=== PATIENT | female | born 1955 | race Caucasian/White ===

== ENCOUNTER 2019-01-21 14:53 | Emergency (ER) | payer OTHER, SELFPAY ==
[2019-01-21 14:57] VITALS: BP 131/71; PULSE 73; RESP 16; TEMP 36.6; O2SAT 95
--- NOTE | 2019-01-21 15:09 | ED.GENADUL_ITS ---
Discharge Plan Disposition Patient Disposition: HOME Condition: Improving Discharge Details Chief Complaint: AnimalBite Clinical Impression: Cat bite of forearm Primary Care Provider: Akin Blue ED Provider: Chele Clancy Home Meds and New Rx's Prescriptions: New amoxicillin-pot clavulanate 875-125 mg tablet 1 tab PO BID 10 Days Qty: 20 RF: 0 Continued venlafaxine 75 mg Tablet 150 mg DAILY RF: 0 calcium carbonate [Calcium 600] 600 mg calcium (1,500 mg) Tablet 600 mg BID RF: 0 buspirone 7.5 mg Tablet 7.5 mg TID RF: 0 aspirin 81 mg Tablet,Chewable 81 mg PO DAILY RF: 0 trazodone 50 mg Tablet 50 mg PRNRF: 0 carvedilol 3.125 mg Tablet 3.125 mg BID RF: 0 rosuvastatin 40 mg Tablet 40 mg DAILY RF: 0 Atripla 600-200-300 mg Tablet 1 tab DAILY RF: 0 Brilinta 90 mg Tablet 90 mg BID RF: 0 Discharge Instructions Instructions: Animal Bite (ED) Additional Instructions: Please take Augmentin as prescribed. Follow-up with Dr. Blue in clinic as planned. Elevate the arm to reduce pain and swelling. May use Tylenol if needed for discomfort. As we discussed, I recommend a probiotic once daily while on the antibiotics. Return for increased redness, swelling, pain or any other acute concern Medical Decision Making 63-year-old female recently moved to this area from [facility]. She was bitten in the right forearm by a domesticated, immunized cat yesterday, awoke with right arm erythema and warmth this morning. She has a history of HIV, no change to medications which she takes routinely. She has scheduled a appointment to establish care locally with Dr Blue. She does have a developing cellulitis secondary to cat bite. I will treat with Augmentin. She understands homecare as well as return precautions. She is stable for discharge at this time. HPI General Mode of arrival: ambulatory . Date/Time Provider Initiated Documentation: 01/21/19 14:56 . Limitations to Documentation: no limitations . Information obtained by: patient . History of Present Illness 63 year old F presents to the emergency department with the chief complaint of Right arm cat bite, described as moderate, Quality is described as constant, and is localized to the right and upper extremity. Patient reports no radiation. Patient started experiencing this hour(s) and it has been constant. No relieving factors improve symptom(s), No exacerbating factors reported . Patient notes no other symptoms.. Patient did receive the following treatments prior to arrival, none Related Data Home Medications Medication Instructions Recorded Confirmed Atripla 1 tab DAILY 01/21/19 01/21/19 Brilinta 90 mg BID 01/21/19 01/21/19 amoxicillin-pot clavulanate 1 tab PO BID 10 Days #20 tab 01/21/19 aspirin 81 mg PO DAILY 01/21/19 01/21/19 buspirone 7.5 mg TID 01/21/19 01/21/19 calcium carbonate [Calcium 600] 600 mg BID 01/21/19 01/21/19 carvedilol 3.125 mg BID 01/21/19 01/21/19 rosuvastatin 40 mg DAILY 01/21/19 01/21/19 trazodone 50 mg PRN 01/21/19 venlafaxine 150 mg DAILY 01/21/19 01/21/19 Previous Rx's Medication Instructions Recorded amoxicillin-pot clavulanate 1 tab PO BID 10 Days #20 tab 01/21/19 Allergies Allergy/AdvReac Type Severity Reaction Status Date / Time No Known Allergies Allergy Unverified 01/21/19 15:16 General Stated Complaint: AnimalBite DOMINGO: 3 Review of Systems Review of Systems 6 systems reviewed and otherwise neg [facility] Social History Smoking/Tobacco Use Status: Current every day Tobacco Type: cigarettes Alcohol Intake: never Substance use type: does not use Do you feel safe at home: Yes Exam Narrative Exam Narrative: GEN: awake, alert, oriented 3. Pleasant, well groomed, interactive. HEAD: Normocephalic, atraumatic ENT: Mucous membranes moist, oropharynx unremarkable, External ear exam unremarkable EYES: PERRL, EOMI NECK: Full ROM, no CEM, no menigismus CHEST/RESP: Nontender, clear to auscultation bilateral, no wheeze/rhonchi/rales CARDIOVASCULAR: RRR, no murmur, rub jaleel. 2+ Rad pulse bilateral EXT: Full ROM, the right distal forearm has 3 areas of discrete puncture bite wounds with surrounding erythema that is warm to the touch and blanches. No axillary lymphadenopathy Neuro: Grossly normal neurologic exam, conversant, interactive. Psych: Speech fluent, thoughts congruent, affect normal Course Vital Signs Temperature 36.6 C 01/21/19 14:57 Pulse 73 01/21/19 14:57 Respiratory Rate 16 01/21/19 14:57 Blood Pressure 131/71 01/21/19 14:57 Pulse Oximetry 95 01/21/19 14:57 Temperature 36.6 C 01/21/19 14:57 Temperature Source Skin 01/21/19 14:57 Pulse 73 01/21/19 14:57 Respiratory Rate 16 01/21/19 14:57 Respiratory Effort Non-Labored 01/21/19 15:00 Blood Pressure 131/71 01/21/19 14:57 Blood Pressure Position Sitting 01/21/19 14:57 Pulse Oximetry 95 01/21/19 14:57 Oxygen Delivery Method Room Air 01/21/19 14:57 Oxygen Flow Rate 0 01/21/19 14:57
[2019-01-21] MEDS: Amoxicillin 875/Clav. 125 TAB PO (15:28)
== END 2019-01-21 15:35 | disposition home or self-care (01) ==
PROVIDERS: Emergency Provider Emergency Medicine; PCP Family Medicine
DX: S51.831A Puncture wound without foreign body of right forearm, initial encounter (principal); L03.113 Cellulitis of right upper limb; W55.01XA Bitten by cat, initial encounter; Z21 Asymptomatic human immunodeficiency virus [HIV] infection status
CPT/HCPCS: 99283

== ENCOUNTER 2019-02-03 08:24 | Emergency (ER) | payer OTHER, SELFPAY ==
--- NOTE | 2019-02-03 08:30 | DI.RAD_ITS ---
SYMPTOM/DIAGNOSIS: COUGH, HIV PA AND LATERAL CHEST: The lungs are mildly hyperinflated and there is prominence of pulmonary interstitial markings raising the possibility of fibrosis. No focal consolidation. No pleural effusion. Cardiac size is within normal limits. CONCLUSION: Findings raising the possibility of pulmonary fibrosis. No focal abnormality is seen.
[2019-02-03 08:33] VITALS: BP 121/71; PULSE 73; RESP 16; TEMP 36.7; O2SAT 98
--- NOTE | 2019-02-03 08:38 | W.ED.GENAD ---
Discharge Plan Disposition Patient Disposition: HOME Condition: Stable Discharge Details Chief Complaint: RespSymp Clinical Impression: Infection, respiratory tract Primary Care Provider: Akin Blue ED Provider: Tj Person Home Meds and New Rx's Prescriptions: New benzonatate 200 mg capsule 200 mg PO TID PRN (Reason: cough) Qty: 30 RF: 0 doxycycline hyclate 100 mg capsule 100 mg PO BID Qty: 14 RF: 0 Continued venlafaxine 75 mg Tablet 150 mg DAILY RF: 0 calcium carbonate [Calcium 600] 600 mg calcium (1,500 mg) Tablet 600 mg BID RF: 0 buspirone 7.5 mg Tablet 7.5 mg TID RF: 0 aspirin 81 mg Tablet,Chewable 81 mg PO DAILY RF: 0 trazodone 50 mg Tablet 50 mg PRNRF: 0 carvedilol 3.125 mg Tablet 3.125 mg BID RF: 0 rosuvastatin 40 mg Tablet 40 mg DAILY RF: 0 Atripla 600-200-300 mg Tablet 1 tab DAILY RF: 0 Brilinta 90 mg Tablet 90 mg BID RF: 0 Discharge Instructions Instructions: Upper Respiratory Infection (ED) Additional Instructions: Please take your medication as prescribed and stay well-hydrated. Return to emergency department for any new or significant worsening of symptoms otherwise follow-up with your primary care provider for reassessment. Referrals: Akin Blue [Primary Care Provider] - (Keep your appointment as scheduled. ) Medical Decision Making Patient presenting the emergency department for chief complaint of cough. Patient is a HIV patient that just recently moved to the area. She states yesterday she started noticing a cough that became harsh throughout the course the day. Last night she does state some fever and chills. Patient does state history of COPD emphysema due to smoking which she has been trying to quit but has been smoking more over the past couple weeks due to life stressors. Physical exam shows an afebrile patient with normal vital signs, no respiratory distress, normal cardiac exam without tachycardia, clear lung sounds, normal HEENT exam. While exam is very reassuring given that patient is HIV positive with history of fever and chills and cough I do feel that work-up is required. Pending results patient given IV fluids. Review of labs shows slightly increased hemoglobin, no leukocytosis and specifically absolute lymphocyte within normal range. CMP is nondiagnostic and unremarkable UA. Chest x-ray reviewed along with radiologist interpretation shows no acute findings. While I feel labs and x-rays reassuring given that patient is reporting night sweats, fever, and worsening cough in her rapid. I still do feel that given patient's HIV and COPD emphysema the patient requires antibiotic coverage. Patient placed on doxycycline and given Tessalon Perles for cough suppressant. Patient reports that she already has a primary care visit follow-up scheduled for next week which if patient is not worsening I feel this is appropriate. Return precautions were discussed. After discussion of diagnosis and plan of care patient has no further needs, questions, or concerns and states clear understanding to return to the emergency department for any worsening symptoms. HPI General Mode of arrival: ambulatory. Date/Time Provider Initiated Documentation: 02/03/19 08:25. Limitations to Documentation: no limitations. Information obtained by: patient, RN notes reviewed and old records reviewed. History of Present Illness 63 year old F presents to the emergency department with the chief complaint of Cough, described as moderate and similar to prior episodes, Quality is described as other (Denies pain or discomfort), Patient started experiencing this day(s) (1) and it has been constant. No relieving factors improve symptom(s), No exacerbating factors reported . Patient did receive the following treatments prior to arrival, none Related Data Home Medications Medication Instructions Recorded Confirmed Atripla 1 tab DAILY 01/21/19 01/21/19 Brilinta 90 mg BID 01/21/19 01/21/19 aspirin 81 mg PO DAILY 01/21/19 01/21/19 buspirone 7.5 mg TID 01/21/19 01/21/19 calcium carbonate [Calcium 600] 600 mg BID 01/21/19 01/21/19 carvedilol 3.125 mg BID 01/21/19 01/21/19 rosuvastatin 40 mg DAILY 01/21/19 01/21/19 trazodone 50 mg PRN 01/21/19 venlafaxine 150 mg DAILY 01/21/19 01/21/19 benzonatate 200 mg PO TID PRN #30 cap 02/03/19 doxycycline hyclate 100 mg PO BID #14 cap 02/03/19 Previous Rx's Medication Instructions Recorded benzonatate 200 mg PO TID PRN #30 cap 02/03/19 doxycycline hyclate 100 mg PO BID #14 cap 02/03/19 Allergies Allergy/AdvReac Type Severity Reaction Status Date / Time No Known Allergies Allergy Unverified 01/21/19 15:16 General Stated Complaint: RespSymp DOMINGO: 3 Review of Systems Constitutional Reports chills, Reports fever(s) and Denies headache(s) ENT Reports as per HPI, Denies ear discharge, Denies otalgia, Denies headache(s), Reports nasal congestion, Denies neck pain, Denies sore throat and Denies throat swelling Cardiovascular Denies chest pain and Denies dyspnea Respiratory Reports cough and Denies dyspnea Musculoskeletal Denies joint swelling and Denies neck pain Integumentary/Breasts Denies rash Neurologic Denies headache(s) Allergic/Immunologic Denies throat swelling PFSH Social History Smoking/Tobacco Use Status: Current every day Tobacco Type: cigarettes Alcohol Intake: never Substance use type: does not use Do you feel safe at home: Yes Exam Const General: cooperative, comfortable and no acute distress Orientation: alert and awake [facility] Head: normal to inspection, normocephalic and atraumatic Ears: hearing grossly normal bilaterally, external ears normal and TM's normal bilaterally General nose exam: external nose normal and nares normal Mouth: oral mucosae normal, lip normal, tongue normal, no drooling, no muffled voice and no trismus Throat: posterior oropharynx normal, tonsils normal and uvula midline Neck Neck: normal visual inspection, full ROM, no lymphadenopathy, no meningeal signs, trachea midline and supple Resp Effort & Inspection: normal respiratory effort, able to speak in complete sentences and cough Quality of cough: dry Auscultation: clear to auscultation bilaterally Cardio Rate: regular rate Rhythm: regular rhythm Heart Sounds: S1 normal, S2 normal, normal S1 and S2, no click, no gallops, no murmurs and no rubs Skin General skin exam: no rashes or lesions noted and dry skin (warm) Neuro General: alert, awake, gait normal and moves all extremities Course Vital Signs Temperature 36.7 C 02/03/19 08:33 Pulse 73 02/03/19 08:33 Respiratory Rate 16 02/03/19 08:33 Blood Pressure 121/71 02/03/19 08:33 Pulse Oximetry 98 02/03/19 08:33 Temperature 36.7 C 02/03/19 08:33 Temperature Source Skin 02/03/19 08:33 Pulse 73 02/03/19 08:33 Respiratory Rate 16 02/03/19 08:33 Respiratory Effort Non-Labored 02/03/19 08:36 Respiratory Depth Normal 02/03/19 08:36 Blood Pressure 121/71 02/03/19 08:33 Blood Pressure Position Supine 02/03/19 08:33 Pulse Oximetry 98 02/03/19 08:33 Lab/Test Results Lab/Test Results: 02/03/19 08:32 Blood Blood Culture - Pending 02/03/19 08:32 Blood Blood Culture - Pending
[2019-02-03] MEDS: Normal Saline 1,000 ML 1000 ML IV (08:57)
[2019-02-03 09:05] LABS: Lactate 1.2 mmol/L (0.6-1.4)
[2019-02-03 09:07] LABS: Abs Immature Grans 0.03 k/cumm (0.0-0.09); Absolute Basophil Count 0.06 k/cumm (0.0-0.2); Absolute Eosinophil Count 0.19 k/cumm (0.0-0.7); Absolute Lymphocyte Count 1.95 k/cumm (1.2-3.4); Absolute Monocyte Count 0.48 k/cumm (0.11-0.7); Absolute Neutrophil Count 4.46 k/cumm (1.2-6.7); Basophils % 0.8; Eosinophils % 2.6; HCT 45.6 % (36.0-46.0); HGB 15.7 g/dL (12.0-15.5); Immature Grans % 0.4; Lymphocytes % 27.2; Mean Corp. HGB Concentration 34.4 g/dL (32.0-36.0); Mean Corpuscular Hemoglobin 33.5 pg (27.0-33.0); Mean Corpuscular Volume 97.2 fL (80-95); Mean Platelet Volume 10.3 fL (8.0-11.0); Monocytes % 6.7; Neutrophils % 62.3; Platelet Count 330 x1000/uL (130-400); RBC 4.69 m/cumm (4.00-5.20); RBC Distribution Width 13.1 % (11.7-14.6); White Blood Cell Count 7.17 k/cumm (4.4-10.8)
[2019-02-03 09:09] LABS: Bilirubin Negative (Negative); Blood Negative (Negative); Clarity Clear (Clear); Glucose Negative (Negative); Ketones Negative (Negative); Leukocyte Esterase Negative (Negative); Nitrite Negative (Negative); Specific Gravity 1.015 (1.005-1.025); Urobilinogen 0.2 EU/dL (Up TO 0.2); pH 6.5 (5-8)
[2019-02-03 09:24] LABS: ALT 30 U/L (12-78); AST 20 U/L (15-37); Albumin 3.6 g/dL (3.4-5.0); Alkaline Phosphatase 85 U/L (46-116); Anion Gap 11.1 mmol/L (3-11); BUN 16 mg/dL (7-18); Bilirubin, Total 0.1 mg/dL (0.2-1.0); CO2 25.9 mmol/L (21.0-32.0); CREATININE 0.66 mg/dL (0.55-1.02); Calcium 9.4 mg/dL (8.5-10.1); Chloride 104 mmol/L (98-107); Glucose 115 mg/dL (70-100); Sodium 141 mmol/L (136-145); Total Protein 7.6 g/dL (6.4-8.2)
[2019-02-03 10:53] VITALS: BP 121/78; PULSE 74; RESP 20; TEMP 36.6; O2SAT 97
[2019-02-03] MEDS: Doxycycline Hyclate 100 MG CAP PO (10:55)
--- NOTE | 2019-02-03 10:57 | NUR.NOTE ---
Nursing Note: IV Removed, dressing applied.
== END 2019-02-03 11:16 | disposition home or self-care (01) ==
PROVIDERS: Emergency Provider Nurse Practitioner Family; PCP Family Medicine
DX: J22 Unspecified acute lower respiratory infection (principal); J43.9 Emphysema, unspecified; F17.210 Nicotine dependence, cigarettes, uncomplicated; Z21 Asymptomatic human immunodeficiency virus [HIV] infection status
CPT/HCPCS: 36410; 36415; 80053; 87040; 96360; 99284; 71046; 81003; 83605; 85025

== ENCOUNTER 2019-02-08 14:56 | Outpatient (CLI) | payer OTHER, SELFPAY ==
[2019-02-08 15:43] LABS: Abs Immature Grans 0.03 k/cumm (0.0-0.09); Absolute Basophil Count 0.06 k/cumm (0.0-0.2); Absolute Eosinophil Count 0.08 k/cumm (0.0-0.7); Absolute Lymphocyte Count 2.08 k/cumm (1.2-3.4); Absolute Monocyte Count 0.44 k/cumm (0.11-0.7); Absolute Neutrophil Count 4.82 k/cumm (1.2-6.7); Basophils % 0.8; Eosinophils % 1.1; HCT 43.4 % (36.0-46.0); HGB 14.8 g/dL (12.0-15.5); Immature Grans % 0.4; Lymphocytes % 27.7; Mean Corp. HGB Concentration 34.1 g/dL (32.0-36.0); Mean Corpuscular Hemoglobin 33.2 pg (27.0-33.0); Mean Corpuscular Volume 97.3 fL (80-95); Mean Platelet Volume 10.1 fL (8.0-11.0); Monocytes % 5.9; Neutrophils % 64.1; Platelet Count 338 x1000/uL (130-400); RBC 4.46 m/cumm (4.00-5.20); RBC Distribution Width 13.4 % (11.7-14.6); White Blood Cell Count 7.51 k/cumm (4.4-10.8)
[2019-02-08 16:49] LABS: ALT 29 U/L (14-59); AST 18 U/L (15-37); Albumin 3.2 g/dL (3.4-5.0); Alkaline Phosphatase 99 U/L (46-116); Anion Gap 11.1 mmol/L (3-11); BUN 27 mg/dL (7-18); Bilirubin, Total 0.3 mg/dL (0.2-1.0); CO2 24.9 mmol/L (21.0-32.0); CREATININE 0.64 mg/dL (0.55-1.02); Calcium 8.8 mg/dL (8.5-10.1); Calculated LDL 81 mg/dL; Chloride 108 mmol/L (98-107); Cholesterol 175 mg/dL (50-200); Glucose 104 mg/dL (70-100); HDL Cholesterol 62 mg/dL (40-60); Sodium 144 mmol/L (136-145); Total Protein 6.4 g/dL (6.4-8.2); Triglyceride 163 mg/dL (30-150)
[2019-02-08 17:05] LABS: PHOSPHORUS 3.9 mg/dL (2.6-4.7)
[2019-02-09 10:20] LABS: Hepatitis B Surface Ag Negative (NEGAT)
[2019-02-09 11:54] LABS: Syphilis Serology (RPR) Negative (Negative)
[2019-02-09 14:40] LABS: CD3 79 % (62-87); CD4 29 % (35-63); CD8 51 % (10-35)
[2019-02-09 14:57] LABS: HCV RNA Detection Quantitative Undetected IU/mL (UNDECT)
[2019-02-09 15:51] LABS: HIV-1 RNA Quantification Undetected copies/mL (UNDECT)
== END 2019-02-08 15:16 ==
PROVIDERS: PCP Family Medicine; Visit Provider Family Medicine
DX: B20 Human immunodeficiency virus [HIV] disease (principal); R79.89 Other specified abnormal findings of blood chemistry
CPT/HCPCS: 36415; 80053; 80061; 83721; 87340; 87536; 84100; 85025; 86359; 86360; 86592; 87522

== ENCOUNTER 2019-06-24 02:20 | Outpatient (CLI) | payer OTHER, MEDICAID, SELFPAY ==
--- NOTE | 2019-06-24 15:20 | DI.DEXA_ITS ---
EXAM: XR DEXA BONE DENSITY W/WO CECI CLINICAL HISTORY: OSTEOPOROSIS, M81.0 TECHNIQUE: DEXA scan was performed according to the usual protocol. COMPARISON: No exams were available for comparison FINDINGS: Findings for lumbar spine scanning are T-score -0.8. Findings for left hip are T-score -1.8 with left femoral neck T-score -1.1. Findings for left forearm scanning are T-score -1.2. IMPRESSION: Findings consistent with osteopenia according to WHO criteria. Please note that there are multiple v ertebral compression fractures seen on lateral vertebral scanogram.
--- NOTE | 2019-06-24 15:45 | DI.MAMMO_ITS ---
EXAM: MG MAMMO SCREENING CLINICAL HISTORY: SCREENING, Z12.39. TECHNIQUE: Bilateral full field digital CC and MLO mammographic images were obtained with 3D tomosyn thesis and utilizing computer aided detection (CAD). COMPARISON: There were no available exams for comparison. Should they become available an addendum w ill be issued at that time. FINDINGS: Masses/Architectural Distortion: None seen. Microcalcifications: No suspicious pleomorphic-type are seen. Skin Thickening/Nipple Retraction: None. IMPRESSION: 1. No significant interval change with no specific features of malignancy noted. 2. Unless there is more urgent need, screening mammography is recommended, as per [employer] guidelines. ACR BI-RAD Category- 1 Negative Breast Density - Category B - Scattered areas of fibroglandular density A negative radiographic report should not delay biopsy if a dominant or clinically suspicious mass is present. Up to ten percent of cancers are not identified on mammography. A negative report may reinforce clinical impression. Adenosis and dense breasts may obscure an underlying neoplasm. False positive reports average 6 to 10%. Patient will receive a letter notifying them of these results.
== END 2019-06-24 02:40 ==
PROVIDERS: PCP Family Medicine; Visit Provider Family Medicine
DX: Z12.31 Encounter for screening mammogram for malignant neoplasm of breast (principal); M85.88 Other specified disorders of bone density and structure, other site; M81.0 Age-related osteoporosis without current pathological fracture
CPT/HCPCS: 77063; 77067; 77080

== ENCOUNTER 2020-01-06 14:19 | Outpatient (REF) | payer OTHER, SELFPAY ==
--- NOTE | 2020-01-06 13:35 | PAPFT_PTH ---
PATIENT: Ivonne Mcfadden LOC: [facility] U#:[id number] AGE/SX: 64/F ROOM: RE01/06/[address]: Akin Blue : 1955 BED: DIS: 01/06/2020 SPEC #: [id number] RECD: 01/06/20 18:06 STATUS: MARKO REQ #: [id number] CHAPARRITA: 01/06/20 13:[address]: Akin Blue DEPT: [facility] Cytology RECD BY: Estrella Brunner Tissues: 1 - CX/ENDOCX FOR PAP SMEARS Procedures: PAP THIN PREP/UVM Screening HPV DNA PROBE Comments: [id number]
[2020-01-10 15:32] LABS: Chlamydia Result Negative (Negative); GC Result Negative (Negative)
== END 2020-01-06 14:39 ==
LOC: NCHCN 14:19
PROVIDERS: PCP Family Medicine; Visit Provider Family Medicine
DX: R87.810 Cervical high risk human papillomavirus (HPV) DNA test positive (principal); Z11.51 Encounter for screening for human papillomavirus (HPV)
CPT/HCPCS: 87491; 87591; 88142; 87480; 87510; 87624; 87660

== ENCOUNTER 2020-01-11 03:27 | Outpatient (CLI) | payer OTHER, SELFPAY ==
[2020-01-11 10:10] LABS: HGB 16.3 g/dL (11.2-15.7); MCH 32.2 pg (27.0-33.0); MCV 94.9 fL (80-95); MPV 11.4 fL (8.0-11.0); Platelet Count 224 10^3/uL (130-400); RBC 5.06 10^6/uL (3.93-5.22); RDW 12.2 % (11.7-14.6); WBC 7.29 10^3/uL (4.4-10.8)
[2020-01-11 10:11] LABS: Absolute Neutrophil Count 4.83 10^3/uL (1.2-6.7); Basophils % 0.5; Eosinophils % 1.5; Immature Grans % 0.1; Lymphocytes % 23.3; Monocytes % 8.2; Neutrophils % 66.4 %
[2020-01-11 10:12] LABS: Abs Immature Grans 0.01 10^3/uL (0.0-0.06); Absolute Basophil Count 0.04 10^3/uL (0.0-0.2); Absolute Eosinophil Count 0.11 10^3/uL (0.0-0.7)
[2020-01-11 10:49] LABS: Calculated LDL 85 mg/dL (<100); Cholesterol 159 mg/dL (<200); HDL Cholesterol 46 mg/dL (40-60); Triglyceride 142 mg/dL (<150)
[2020-01-12 11:39] LABS: Syphilis Serology (RPR) Negative (Negative)
[2020-01-12 17:33] LABS: CD3 80 % (62-87); CD4 30 % (35-63); CD8 52 % (10-35)
[2020-01-13 15:10] LABS: HIV 1 RNA Qualitative Undetected copies/mL (Undetected)
== END 2020-01-11 03:47 ==
PROVIDERS: PCP Family Medicine; Visit Provider Family Medicine
DX: B20 Human immunodeficiency virus [HIV] disease (principal); Z00.00 Encounter for general adult medical examination without abnormal findings; I25.10 Atherosclerotic heart disease of native coronary artery without angina pectoris
CPT/HCPCS: 36415; 80061; 87536; 85025; 86359; 86360; 86592

== ENCOUNTER 2020-03-02 14:15 | Outpatient (REF) | payer OTHER, SELFPAY ==
--- NOTE | 2020-03-02 13:55 | CER_PTH ---
PATIENT: Ivonne Mcfadden LOC: N U#:[id number] AGE/SX: 64/F ROOM: RE03/02/[address]: Katie Cintron DO : 1955 BED: DIS: 03/02/2020 SPEC #: [id number] RECD: 03/02/20 18:15 STATUS: MARKO REQ #: [id number] CHAPARRITA: 03/02/20 13:[address]: Katie Cintron DEPT: Surgical Specimen RECD BY: Estrella Brunner ENTERED: 03/02/20 18:16 SP TYPE: CER OTHR DR: Akin Blue Tissues: 1 - CERVICAL BIOPSY 2 - ENDOCERVICAL BX/CURRETTE Procedures: GROSS AND MICRO LEVEL 4 Comments: [id number]
== END 2020-03-02 14:35 ==
LOC: LBN 14:15
PROVIDERS: PCP Family Medicine; Visit Provider Obstetrics & Gynecology
DX: R87.610 Atypical squamous cells of undetermined significance on cytologic smear of cervix (ASC-US) (principal)
CPT/HCPCS: 88305

== ENCOUNTER 2020-04-05 21:12 | Outpatient (REF) | payer OTHER, SELFPAY ==
[2020-04-05 20:12] LABS: ALT 28 U/L (14-59); AST 16 U/L (15-37); Albumin 3.6 g/dL (3.4-5.0); Alkaline Phosphatase 72 U/L (46-116); Anion Gap 8.2 mmol/L (3-11); BUN 17 mg/dL (7-18); Bilirubin, Total 0.4 mg/dL (0.2-1.0); CO2 24.8 mmol/L (21.0-32.0); CREATININE 0.73 mg/dL (0.55-1.02); Calcium 9.2 mg/dL (8.5-10.1); Chloride 106 mmol/L (98-107); Glucose 88 mg/dL (74-106); Potassium 4.3 mmol/L (3.5-5.1); Sodium 139 mmol/L (136-145); Total Protein 6.5 g/dL (6.4-8.2)
== END 2020-04-05 21:32 ==
LOC: NCHCN 21:12
PROVIDERS: PCP Family Medicine; Visit Provider Family Medicine
DX: B20 Human immunodeficiency virus [HIV] disease (principal)
CPT/HCPCS: 80053

== ENCOUNTER 2020-04-13 15:38 | Outpatient (CLI) | payer OTHER, SELFPAY ==
[2020-04-13 16:33] LABS: Troponin I < 0.05 ng/mL (<0.06)
[2020-04-16 21:01] LABS: Patient Race White; SARS-CoV-2 RNA Undetected (Undetected); SARS-CoV-2 Specimen Source Nasal
== END 2020-04-13 15:58 ==
LOC: LBO 15:42 → NCHCO 16:32
PROVIDERS: PCP Family Medicine; Visit Provider Nurse Practitioner Family
DX: R06.02 Shortness of breath (principal); Z11.59 Encounter for screening for other viral diseases
CPT/HCPCS: 36415; U0003; 84484

== ENCOUNTER 2020-05-04 02:25 | Outpatient (CLI) | payer OTHER, SELFPAY ==
[2020-05-05 21:55] LABS: SARS-CoV-2 RNA Not Detected (NotDetected); SARS-CoV-2 RNA Source Nasal/Nares
== END 2020-05-04 02:45 ==
PROVIDERS: Surgery; PCP Family Medicine; Visit Provider Surgery
DX: Z11.59 Encounter for screening for other viral diseases (principal); Z01.818 Encounter for other preprocedural examination
CPT/HCPCS: U0003

== ENCOUNTER 2020-05-08 19:12 | Outpatient (REF) | payer OTHER, SELFPAY ==
[2020-05-08 20:33] LABS: HCT 46.7 % (36.0-46.0); HGB 15.5 g/dL (11.2-15.7); MCH 32.1 pg (27.0-33.0); MCHC 33.2 % (32.0-36.0); MCV 96.7 fL (80-95); Platelet Count 239 10^3/uL (130-400); RBC 4.83 10^6/uL (3.93-5.22); RDW 12.1 % (11.7-14.6); RDW-SD 43.2 fL; WBC 6.81 10^3/uL (4.4-10.8)
[2020-05-08 20:53] LABS: NT-proBNP 40 pg/mL (<300)
== END 2020-05-08 19:32 ==
LOC: NCHCN 19:12
PROVIDERS: PCP Family Medicine; Visit Provider Family Medicine
DX: R06.02 Shortness of breath (principal); B20 Human immunodeficiency virus [HIV] disease
CPT/HCPCS: 85027; 83880

== ENCOUNTER 2020-05-16 00:38 | Outpatient (CLI) | payer OTHER, SELFPAY ==
--- NOTE | 2020-05-16 | DI.CT_ITS ---
EXAM: CT CHEST W CLINICAL HISTORY: SOB,R06.02,SMOKER,WELL CONTROLLED HIV. TECHNIQUE: Imaging Protocol: Axial CT angiography was performed with multi-slice acquisition and mu lti-planar and/or 3D reconstructions. CONTRAST MATERIAL: Intravenous: Omnipaque 350 Contrast volume:structured data in ml COMPARISON: No exams were available for comparison FINDINGS: CT examination of the chest was performed with intravenous infusion of 70 cc of Omnipaque 350. There are moderate to severe pulmonary central lobular emphysematous changes. There are peripheral r eticular radiodensities consistent with mild fibrosis. No focal pulmonary consolidation. No pulmona ry mass or nodule identified.. No pleural effusion. Tracheobronchial tree appears intact. No evidence of pulmonary embolic disease. Thoracic aorta is of normal diameter, no thoracic aortic an eurysm or dissection, major branch vessels appear intact. No mediastinal or hilar adenopathy. Images obtained through the upper abdomen show a nonobstructing left upper pole renal calculus. Visu alized portions of the liver, spleen, and pancreas appear intact, as do the adrenals. IMPRESSION: Moderate to severe pulmonary central lobular emphysematous changes and mild fibrotic changes. No acu te process. RADIATION DOSE DELIVERED: 551.91mGy.cm Total DLP 551.91mGy.cm Total DLP DATA REPOSITORY: All CT scans at this facility are submitted to the National Radiology Data Registry (NRDR) Dose Index Registry (DIR) with the [employer] (ACR). RADIATION OPTIMIZATION: All CT scans at this facility use at least one of these dose optimization te chniques: automated exposure control; mA and/or kV adjustment per patient size (includes targeted exa ms where dose is matched to clinical indication); or iterative reconstruction.
[2020-05-16 09:04] LABS: Abs Immature Grans 0.02 10^3/uL (0.0-0.06); Absolute Basophil Count 0.04 10^3/uL (0.0-0.2); Absolute Lymphocyte Count 1.51 10^3/uL (1.2-3.4); Absolute Neutrophil Count 3.89 10^3/uL (1.2-6.7); Basophils % 0.7; Eosinophils % 1.7; HCT 46.8 % (36.0-46.0); HGB 15.8 g/dL (11.2-15.7); Immature Grans % 0.3; Lymphocytes % 24.9; MCH 32.4 pg (27.0-33.0); MCHC 33.8 % (32.0-36.0); MCV 96.1 fL (80-95); MPV 10.1 fL (8.0-11.0); Monocytes % 8.3; Neutrophils % 64.1; Nucleated RBC 0 %; Platelet Count 265 10^3/uL (130-400); RBC 4.87 10^6/uL (3.93-5.22); RDW 12.3 % (11.7-14.6); RDW-SD 43.7 fL; WBC 6.06 10^3/uL (4.4-10.8)
[2020-05-16] MEDS: Normal Saline - Diluent 50 ML VIAL IV (09:18)
[2020-05-16] MEDS: Omnipaque 350 MG/ML 100 ML BTL IJ (09:18)
[2020-05-16] MEDS: Normal Saline Flush 10 ML SYR IVP (09:19)
[2020-05-16 09:46] LABS: Calculated LDL 88 mg/dL (<100); Cholesterol 166 mg/dL (<200); HDL Cholesterol 53 mg/dL (40-60); Triglyceride 126 mg/dL (<150)
[2020-05-16 10:10] LABS: NT-proBNP 36 pg/mL (<300)
[2020-05-17 10:45] LABS: Syphilis Serology (RPR) Negative (Negative)
[2020-05-17 18:49] LABS: CD3 80 % (62-87); CD4 31 % (35-63); CD8 50 % (10-35)
[2020-05-18 14:32] LABS: HIV 1 RNA Qualitative Undetected copies/mL (Undetected)
== END 2020-05-16 00:58 ==
PROVIDERS: PCP Family Medicine; Visit Provider Family Medicine
DX: R06.02 Shortness of breath; F17.210 Nicotine dependence, cigarettes, uncomplicated; Z21 Asymptomatic human immunodeficiency virus [HIV] infection status
CPT/HCPCS: 80061; 87536; 71260; 82565; 83880; 85025; 86359; 86360; 86592; J3490

== ENCOUNTER 2020-11-29 20:43 | Outpatient (REF) | payer OTHER, SELFPAY ==
[2020-11-29 20:15] LABS: Abs Immature Grans 0.01 10^3/uL (0.0-0.06); Absolute Basophil Count 0.03 10^3/uL (0.0-0.2); Absolute Eosinophil Count 0.11 10^3/uL (0.0-0.7); Absolute Lymphocyte Count 1.92 10^3/uL (1.2-3.4); Absolute Neutrophil Count 3.26 10^3/uL (1.2-6.7); Basophils % 0.5; Eosinophils % 1.9; HCT 44.8 % (36.0-46.0); HGB 15.4 g/dL (11.2-15.7); Immature Grans % 0.2; Lymphocytes % 32.9; MCH 33.3 pg (27.0-33.0); MCHC 34.4 % (32.0-36.0); MPV 10.8 fL (8.0-11.0); Monocytes % 8.6; Neutrophils % 55.9; Nucleated RBC 0 %; Platelet Count 247 10^3/uL (130-400); RBC 4.62 10^6/uL (3.93-5.22); RDW 12.5 % (11.7-14.6); RDW-SD 44.7 fL; WBC 5.83 10^3/uL (4.4-10.8)
[2020-11-29 20:34] LABS: ALT 28 U/L (14-59); AST 18 U/L (15-37); Albumin 3.6 g/dL (3.4-5.0); Alkaline Phosphatase 70 U/L (46-116); Anion Gap 7.8 mmol/L (3-11); BUN 13 mg/dL (7-18); Bilirubin, Total 0.4 mg/dL (0.2-1.0); CO2 29.2 mmol/L (21.0-32.0); CREATININE 0.6 mg/dL (0.55-1.02); Calcium 9.4 mg/dL (8.5-10.1); Calculated LDL 55 mg/dL (<100); Chloride 105 mmol/L (98-107); Cholesterol 123 mg/dL (<200); Glucose 93 mg/dL (74-106); HDL Cholesterol 42 mg/dL (40-60); Potassium 4.6 mmol/L (3.5-5.1); Sodium 142 mmol/L (136-145); Total Protein 6.6 g/dL (6.4-8.2); Triglyceride 131 mg/dL (<150)
[2020-12-01 12:11] LABS: Syphilis Serology (RPR) Negative (Negative)
[2020-12-04 15:34] LABS: HIV 1 RNA Qualitative Undetected copies/mL (Undetected)
== END 2020-11-29 20:44 | disposition home or self-care (01) ==
LOC: NCHCN 20:43
PROVIDERS: PCP Family Medicine; Visit Provider Family Medicine
DX: B20 Human immunodeficiency virus [HIV] disease (principal); I25.10 Atherosclerotic heart disease of native coronary artery without angina pectoris
CPT/HCPCS: 80053; 80061; 87536; 85025; 86592

== ENCOUNTER 2021-01-10 19:21 | Outpatient (REF) | payer OTHER, SELFPAY ==
[2021-01-10 21:33] LABS: TSH 1.35 uIU/mL (0.36-3.74); Vitamin B12 618 pg/mL (193-986)
== END 2021-01-10 19:22 | disposition home or self-care (01) ==
LOC: NCHCN 19:21
PROVIDERS: PCP Family Medicine; Visit Provider Family Medicine
DX: D75.89 Other specified diseases of blood and blood-forming organs (principal); R68.89 Other general symptoms and signs
CPT/HCPCS: 82607; 84443

== ENCOUNTER 2021-01-18 09:18 | Emergency (ER) | payer OTHER, SELFPAY ==
--- NOTE | 2021-01-18 09:30 | DI.RAD_ITS ---
Exam(s) XR PORTABLE CHEST AP EXAM: XR PORTABLE CHEST AP CLINICAL HISTORY: sob/cough. TECHNIQUE: 2D digital imaging was performed. COMPARISON: CR XR CHEST 2V PA LATERAL from 02/03/2019 FINDINGS: Heart size is normal. The mediastinum is not widened. Left lung is clear. There is silhouetting of the right heart border which probably indicates infiltr ate in the medial segment of the right middle lobe. No pleural effusions. IMPRESSION: Suspicious for infiltrate in the right middle lobe, therefore recommend nonportable PA and upright vi ews when clinically possible for confirmation. There are no pleural effusions. DATA REPOSITORY: RADIATION DOSE DELIVERED: All CT scans at this facility use at least one of these dose optimization techniques: automated exposure control; mA and/or kV adjustment per patient size (includes targeted e xams where dose is matched to clinical indication); or iterative reconstruction.
[2021-01-18 09:35] VITALS: BP 156/58; PULSE 76; RESP 18; TEMP 36.9; O2SAT 95
--- NOTE | 2021-01-18 10:37 | W.ED.GENAD ---
Discharge Plan Disposition Patient Disposition: HOME Condition: Stable Discharge Details Clinical Impression: Pneumonia Primary Care Provider: [facility] ED Provider: Dragan Myrick Home Meds and New Rx's Prescriptions: New amoxicillin-pot clavulanate [Augmentin] 875-125 mg tablet 1 tab PO BID Qty: 20 RF: 0 Continued albuterol sulfate 90 mcg/actuation HFA aerosol inhaler 2 puff inhalation Q6H PRNRF: 0 Spiriva with HandiHaler 18 mcg capsule, w/inhalation device 1 cap inhalation DAILY RF: 0 bisacodyl [Dulcolax (bisacodyl)] 5 mg tablet,delayed release (DR/EC) 5 mg PO ONCE Qty: 4 RF: 0 polyethylene glycol 3350 17 gram/dose powder 238 g PO ONCE Qty: 238 RF: 0 Trelegy Ellipta 100-62.5-25 mcg blister with device 1 inh inhalation DAILY RF: 0 Biktarvy 50-200-25 mg tablet 1 tab PO DAILY RF: 0 venlafaxine 75 mg Tablet 150 mg DAILY RF: 0 calcium carbonate [Calcium 600] 600 mg calcium (1,500 mg) Tablet 600 mg BID RF: 0 buspirone 7.5 mg Tablet 7.5 mg TID RF: 0 aspirin 81 mg Tablet,Chewable 81 mg PO DAILY RF: 0 trazodone 50 mg Tablet 50 mg PO HS RF: 0 carvedilol 3.125 mg Tablet 3.125 mg BID RF: 0 rosuvastatin 40 mg Tablet 40 mg DAILY RF: 0 Brilinta 90 mg Tablet 90 mg PO BID RF: 0 nicotine 14 mg/24 hr patch 24 hour 14 mg transdermal DAILY RF: 0 Chantix 1 mg tablet 1 mg PO BID RF: 0 Discharge Instructions Instructions: Pneumonia (ED) Additional Instructions: Augmentin as directed. Your Covid test was negative. Rest, stay well-hydrated, [id number] medications such as Tylenol as directed for fever and/or body aches. Keep up the good work, do not start smoking again. Please watch for new or worsening symptoms and return to the ER for any concerns. Lastly, I recommend reaching out your primary care provider to discuss your symptoms, ER visit, and need for outpatient reevaluation. Discharge Data Discharge Date/Time-TO BE ENTERED AT DEPARTURE: 01/18/21 12:44 Medical Decision Making 65-year-old female, recently quit smoking, history of hypertension, CAD, COPD, depression, hepatitis C, well-controlled HIV, presenting for cough, fever, body aches, loss of taste over the past couple of days. Clinically she has a cough but is afebrile, pulse in the 70s, O2 sats mid 90s on room air. Given her past medical history of obtain routine laboratory values, chest x-ray, and a Covid swab Laboratory values reveal a white blood cell count of 16.36, absolute neutrophils 13.30. Sodium 133 potassium 3.2, creatinine 0.8 with a GFR greater than 60, calcium 8.4, urinalysis negative for infection. Covid negative Chest x-ray concerning for pneumonia. Clinically pneumonia certainly is the presentation. Patient appears well, nontoxic, afebrile, no evidence of hypoxemia. Will provide the patient with a home pulse oximeter to monitor her oxygen levels, treat her for community-acquired pneumonia, first dose of Augmentin given here. Patient encouraged to return to the ER for new or worsening symptoms, recommend she contact her primary care provider for prompt outpatient evaluation. Patient appears well, nonseptic, nontoxic. She is agreeable to this plan and has no additional questions or concerns. Strict discharge and return precautions given This documentation was generated using [employer] dictation system, please disregard any oddities of phrase or misspellings. Medical Records Medical records reviewed: Yes I reviewed the patient's medical records. Imaging Data Radiologic Study: Attestation: I personally reviewed and interpreted this imaging study as follows: Imaging: X-Ray Radiologist's impression: XR PORTABLE CHEST AP CLINICAL HISTORY [ sob/cough. ] [] TECHNIQUE 2D digital imaging was performed. COMPARISON [CR XR CHEST 2V PA LATERAL from 02/03/2019] [] FINDINGS [Heart size is normal. The mediastinum is not widened.] [Left lung is clear. There is silhouetting of the right heart border which probably indicates infiltrate in the medial segment of the right middle lobe. No pleural effusions.] [] [] IMPRESSION [Suspicious for infiltrate in the right middle lobe, therefore recommend nonportable PA and upright views when clinically possible for confirmation. There are no pleural effusions. Lab Data Lab results reviewed: Yes I reviewed the patient's lab results. Labs: 01/18/21 11:15 Urine - Reflex from Ua Urine Culture - Preliminary Gram Positive Marly,Mixed Gram Negative Alfa Laboratory Tests Range/Units 01/18/21 01/18/21 01/18/21 10:40 10:40 10:40 WBC (4.4-10.8) 10^3/uL 16.36 H RBC (3.93-5.22) 10^6/uL 4.45 Hgb (11.2-15.7) g/dL 14.5 Hct (36.0-46.0) % 42.8 MCV (80-95) fL 96.2 H MCH (27.0-33.0) pg 32.6 MCHC (32.0-36.0) % 33.9 RDW (11.7-14.6) % 12.2 Plt Count (130-400) 10^3/uL 246 MPV (8.0-11.0) fL 9.8 Immature Gran % 0.4 Neutrophils % 81.3 Lymphocytes % 9.5 Monocytes % 8.1 Eosinophils % 0.4 Basophils % 0.3 Nucleated RBC % % 0 Absolute Neutrophils (1.2-6.7) 10^3/uL 13.30 H Absolute Lymphocytes (1.2-3.4) 10^3/uL 1.55 Absolute Monocytes (0.1-0.8) 10^3/uL 1.33 H Absolute Eosinophils (0.0-0.7) 10^3/uL 0.07 Absolute Basophils (0.0-0.2) 10^3/uL 0.05 Sodium Cancelled Potassium Cancelled Chloride Cancelled Carbon Dioxide Cancelled Anion Gap Cancelled BUN Cancelled Creatinine Cancelled Estimated GFR/1.73 m2 Cancelled Glucose Cancelled Calcium Cancelled Total Bilirubin Cancelled AST Cancelled ALT Cancelled Alkaline Phosphatase Cancelled Total Protein Cancelled Albumin Cancelled Urine Color (Yellow) Urine Clarity (Clear) Urine pH (5-8) Ur Specific [place] (1.005-1.025) Urine Protein (Negative) mg/dL Urine Ketones (Negative) mg/dL Urine Blood (Negative) Urine Nitrite (Negative) Urine Bilirubin (Negative) Urine Urobilinogen (Up TO 0.2) EU/dL Ur Leukocyte Esterase (Negative) Urine RBC (0-2) HPF Urine WBC (0-5) HPF Ur Epithelial Cells (Negative) HPF Urine Crystals (Negative) HPF Urine Bacteria (Negative) HPF Urine Casts (Negative) LPF Urine Mucus (Negative) Urine Other (Negative) Ur Culture Indicated? Urine Glucose (Negative) mg/dL COVID-19 Source Nasal/Nares SARS-CoV-2 (PCR) (Negative) Negative Range/Units 01/18/21 01/18/21 11:15 11:15 WBC (4.4-10.8) 10^3/uL RBC (3.93-5.22) 10^6/uL Hgb (11.2-15.7) g/dL Hct (36.0-46.0) % MCV (80-95) fL MCH (27.0-33.0) pg MCHC (32.0-36.0) % RDW (11.7-14.6) % Plt Count (130-400) 10^3/uL MPV (8.0-11.0) fL Immature Gran % Neutrophils % Lymphocytes % Monocytes % Eosinophils % Basophils % Nucleated RBC % % Absolute Neutrophils (1.2-6.7) 10^3/uL Absolute Lymphocytes (1.2-3.4) 10^3/uL Absolute Monocytes (0.1-0.8) 10^3/uL Absolute Eosinophils (0.0-0.7) 10^3/uL Absolute Basophils (0.0-0.2) 10^3/uL Sodium 133 L Potassium 3.2 L Chloride 99 Carbon Dioxide 24.3 Anion Gap 9.7 BUN 12 Creatinine 0.8 Estimated GFR/1.73 m2 >= 60.00 Glucose 94 Calcium 8.4 L Total Bilirubin 1.3 H AST 17 ALT 24 Alkaline Phosphatase 73 Total Protein 7.4 Albumin 3.2 L Urine Color (Yellow) Yellow Urine Clarity (Clear) Clear Urine pH (5-8) 6.5 Ur Specific [place] (1.005-1.025) 1.010 Urine Protein (Negative) mg/dL Negative Urine Ketones (Negative) mg/dL Negative Urine Blood (Negative) Negative Urine Nitrite (Negative) Negative Urine Bilirubin (Negative) Negative Urine Urobilinogen (Up TO 0.2) EU/dL 4.0 H Ur Leukocyte Esterase (Negative) Trace H Urine RBC (0-2) HPF Negative Urine WBC (0-5) HPF 3-5 Ur Epithelial Cells (Negative) HPF Few Urine Crystals (Negative) HPF Negative Urine Bacteria (Negative) HPF Few Urine Casts (Negative) LPF Negative Urine Mucus (Negative) Negative Urine Other (Negative) Ur Culture Indicated? Yes Urine Glucose (Negative) mg/dL Negative COVID-19 Source SARS-CoV-2 (PCR) (Negative) HPI General Mode of arrival: ambulatory. Date/Time Provider Initiated Documentation: 01/18/21 09:38. Limitations to Documentation: no limitations. Information obtained by: patient. HPI Narrative: This is a 65-year-old female, past medical history that includes CAD, COPD, depression, hepatitis C, HIV, undetectable viral load, on sure of her last CD4 count, hyperlipidemia, hypertension, quit smoking 2 months ago, presenting for subjective fever, chills, primarily dry cough, diarrhea, body aches that began 2 days ago. She did take Tylenol around 430 this morning. Patient reports lack of taste. She denies recent illness or sick contacts. No recent travel. She states that she is fully immunized which includes her Covid vaccine. She reports mild dull global headache, sore throat with coughing. She denies chest pain, shortness of breath, neck pain, abdominal pain, nausea, vomiting, skin rash. No changes to her medications recently. Related Data Home Medications Medication Instructions Recorded Confirmed Brilinta 90 mg PO BID 01/21/19 01/18/21 aspirin 81 mg PO DAILY 01/21/19 04/12/20 buspirone 7.5 mg TID 01/21/19 01/18/21 calcium carbonate [Calcium 600] 600 mg BID 01/21/19 04/12/20 carvedilol 3.125 mg BID 01/21/19 01/18/21 rosuvastatin 40 mg DAILY 01/21/19 01/18/21 trazodone 50 mg PO HS 01/21/19 01/18/21 venlafaxine 150 mg DAILY 01/21/19 01/18/21 bictegravir 50 mg-emtricitabine 1 tab PO DAILY 03/02/20 01/18/21 200 mg-tenofovir alafenam 25 mg tablet albuterol sulfate 90 mcg/actuation 2 puff INHALATION Q6H PRN 03/30/20 01/18/21 aerosol inhaler bisacodyl 5 mg tablet,delayed 5 mg PO ONCE #4 tab 03/30/20 04/12/20 release fluticasone fur. 100 mcg-umeclid 1 inh INHALATION DAILY 03/30/20 01/18/21 62.5 mcg-vilant 25 mcg inhalat.powder polyethylene glycol 3350 17 238 g PO ONCE #238 g 03/30/20 04/12/20 gram/dose oral powder tiotropium bromide 18 mcg capsule 1 cap INHALATION DAILY 03/30/20 01/18/21 with inhalation device Chantix 1 mg PO BID 01/18/21 01/18/21 amoxicillin-pot clavulanate 1 tab PO BID #20 tab 01/18/21 [Augmentin] nicotine 14 mg TRANSDERMAL DAILY 01/18/21 01/18/21 Previous Rx's Medication Instructions Recorded bisacodyl 5 mg tablet,delayed 5 mg PO ONCE #4 tab 03/30/20 release polyethylene glycol 3350 17 238 g PO ONCE #238 g 03/30/20 gram/dose oral powder amoxicillin-pot clavulanate 1 tab PO BID #20 tab 01/18/21 [Augmentin] Allergies Allergy/AdvReac Type Severity Reaction Status Date / Time No Known Allergies Allergy Unverified 01/18/21 10:49 General Stated Complaint: RespSymp DOMINGO: 3 Review of Systems Constitutional Constitutional: Reports chills, Reports fever(s) (Subjective) and Reports headache(s) ENT Ears, Nose, Mouth, and Throat: Reports headache(s), Denies neck pain and Reports sore throat Cardiovascular Cardiovascular: Denies chest pain and Denies dyspnea Respiratory Respiratory: Reports cough and Denies dyspnea Gastrointestinal Gastrointestinal: Reports abdominal pain, Denies nausea and Denies vomiting Genitourinary Genitourinary: Denies dysuria Musculoskeletal Musculoskeletal: Reports myalgias and Denies neck pain Integumentary/Breasts Skin/Breast: Denies rash Neurologic Neurologic: Reports headache(s) PFSH Medical History CAD (coronary artery disease) COPD (chronic obstructive pulmonary disease) with emphysema Depression Hepatitis C Was treated in 2011 History of cocaine use HIV (human immunodeficiency virus infection) Hx of AIDS Per [facility] note. 2019 CD4 came back at 29% but HIV viral load undectectable. Hx of myocardial infarction Pt. states she thinks it was in 2018. Hyperlipidemia Hypertension Mood disorder Osteoporosis Smoker Surgical History History of heart artery stent Pt. states x2 RCA and RPDA-2018. Hx of colonoscopy Social History Smoking/Tobacco Use Status: Former Tobacco Use tobacco type: cigarettes Quit Date: 03/12/20 Smoking risk assessment performed?: Yes Alcohol Intake: never Drug use: Current Sobriety Substance use type: former substance user and crack/cocaine Details: Pt. states since last year she has been sober Do you feel safe at home: Yes Do you feel safe in your relationship?: Yes Exam Const General: cooperative, healthy appearing, comfortable and no acute distress Orientation: alert, awake and oriented x3 HENMT Head: normal to inspection, normocephalic and atraumatic Ears: external ears normal, TM's normal bilaterally and EAC's normal Mouth: moist mucous membranes Throat: posterior oropharynx normal Eyes Conjunctivae: conjunctivae normal Neck Neck: normal visual inspection, full ROM, no lymphadenopathy, no meningeal signs, trachea midline, supple and nontender Resp Effort & Inspection: normal respiratory effort, able to speak in complete sentences and cough Quality of cough: dry Auscultation: diminished lung sounds bilaterally in the lower lung rivero Cardio Rate: regular rate Rhythm: regular rhythm GI Palpation: soft and nontender Back/Spine/Pelvis Back: No back tenderness Skin General skin exam: no rashes or lesions noted Neuro General: patient alert, patient awake, moves all extremities and no focal motor deficits Cognition: normal cognition Speech: speech normal Sensory Exam: no sensory deficits noted Extrem General: normal to inspection, full ROM, capillary refill normal, no pedal edema and no calf tenderness Psych Appearance: grossly normal Mental Status: mental status grossly normal Course Vital Signs Vital signs: Vital Signs Temperature 36.9 C 01/18/21 09:35 Pulse 76 01/18/21 09:35 Respiratory Rate 18 01/18/21 09:35 Blood Pressure 156/58 H 01/18/21 09:35 Pulse Oximetry 95 01/18/21 09:35 Temperature 36.9 C 01/18/21 09:35 Temperature Source Skin 01/18/21 09:35 Pulse 76 01/18/21 09:35 Respiratory Rate 18 01/18/21 09:35 Blood Pressure 156/58 H 01/18/21 09:35 Blood Pressure Position Sitting 01/18/21 09:35 Pulse Oximetry 95 01/18/21 09:35 Oxygen Delivery Method Room Air 01/18/21 09:35 Oxygen Flow Rate 0 01/18/21 09:35 Pain Level 8 01/18/21 09:35
[2021-01-18 10:50] LABS: Source Nasal/Nares
[2021-01-18 10:54] LABS: Abs Immature Grans 0.07 10^3/uL (0.0-0.06); Absolute Basophil Count 0.05 10^3/uL (0.0-0.2); Absolute Lymphocyte Count 1.55 10^3/uL (1.2-3.4); Absolute Monocyte Count 1.33 10^3/uL (0.1-0.8); Basophils % 0.3; Eosinophils % 0.4; HCT 42.8 % (36.0-46.0); HGB 14.5 g/dL (11.2-15.7); Immature Grans % 0.4; Lymphocytes % 9.5; MCH 32.6 pg (27.0-33.0); MCHC 33.9 % (32.0-36.0); MCV 96.2 fL (80-95); MPV 9.8 fL (8.0-11.0); Monocytes % 8.1; Neutrophils % 81.3; Nucleated RBC 0 %; Platelet Count 246 10^3/uL (130-400); RBC 4.45 10^6/uL (3.93-5.22); RDW 12.2 % (11.7-14.6); RDW-SD 43.8 fL; WBC 16.36 10^3/uL (4.4-10.8)
[2021-01-18] MEDS: Normal Saline 1,000 ML 1000 ML IV (11:01)
[2021-01-18 11:13] LABS: Absolute Eosinophil Count 0.07 10^3/uL (0.0-0.7)
[2021-01-18 11:23] LABS: Bilirubin Negative (Negative); Blood Negative (Negative); Clarity Clear (Clear); Glucose Negative (Negative); Ketones Negative (Negative); Leukocyte Esterase Trace (Negative); Nitrite Negative (Negative); pH 6.5 (5-8)
[2021-01-18 11:32] LABS: Bacteria Few HPF (Negative); C & S Indicated? Yes; Casts Negative LPF (Negative); Crystals Negative HPF (Negative); Epithelial Cells Few HPF (Negative); Mucus Negative (Negative); RBC Negative HPF (0-2)
[2021-01-18 11:38] LABS: ALT 24 U/L (14-59); AST 17 U/L (15-37); Albumin 3.2 g/dL (3.4-5.0); Alkaline Phosphatase 73 U/L (46-116); Anion Gap 9.7 mmol/L (3-11); BUN 12 mg/dL (7-18); Bilirubin, Total 1.3 mg/dL (0.2-1.0); CO2 24.3 mmol/L (21.0-32.0); CREATININE 0.8 mg/dL (0.55-1.02); Calcium 8.4 mg/dL (8.5-10.1); Chloride 99 mmol/L (98-107); Glucose 94 mg/dL (74-106); Potassium 3.2 mmol/L (3.5-5.1); Sodium 133 mmol/L (136-145); Total Protein 7.4 g/dL (6.4-8.2)
[2021-01-18 12:15] LABS: COVID-19 PCR Negative (Negative)
[2021-01-18 12:27] VITALS: BP 114/77; PULSE 74; RESP 18; O2SAT 94
[2021-01-18] MEDS: Amoxicillin 875/Clav. 125 TAB PO (12:32)
== END 2021-01-18 12:44 | disposition home or self-care (01) ==
PROVIDERS: Emergency Provider Physician Assistant; PCP Family Medicine
DX: J18.8 Other pneumonia, unspecified organism (principal); Z87.891 Personal history of nicotine dependence; Z20.822 Contact with and (suspected) exposure to COVID-19; Z03.818 Encounter for observation for suspected exposure to other biological agents ruled out
CPT/HCPCS: 36415; 80053; 87635; 96360; 99285; 71045; 81003; 81015; 85025; 87086; 99284

== ENCOUNTER 2021-02-06 16:58 | Emergency (ER) | payer OTHER, SELFPAY ==
--- NOTE | 2021-02-06 17:00 | DI.CT_ITS ---
Exam(s) CT HEAD CERVICAL SPINE WO EXAM: CT HEAD CERVICAL SPINE WO CLINICAL HISTORY: head injury on blood thinners. TECHNIQUE: Imaging Protocol: Axial computed tomography images with coronal and sagittal reformatted images were created and reviewed COMPARISON: No exams were available for comparison FINDINGS: BRAIN: There are no skull fractures nor fluid in the visualized paranasal sinuses. There is no evidence of intracranial hemorrhage, mass effect, or shift of midline structures. There are no extra-axial fluid collections. The ventricles are not enlarged or shifted and there is no blo od within the ventricular system nor within the basal cisterns. CERVICAL SPINE: There is an acute compression fracture of the C7 vertebral body. The posterior cortex is intact with no retropulsion nor acute compromise the spinal canal at this level. The fracture lines at this lev el do not extend into the pedicles and posterior osseous elements. There is no facet joint malalignment at this level nor elsewhere in the cervical spine. There is a central disc protrusion at C7-T1 disc space. Mild spinal canal stenosis seen at this disc level. In addition, there is chronic degenerative disc disease and disc herniation at C5-6 level. The disc herniation at this level is central and the extends posteriorly 4.8 millimeters and is 1.5 c m wide is causing moderate spinal canal stenosis at this level. No significant osseous lesions evident. No other disc herniations nor canal stenosis evident. No significant foraminal stenosis. IMPRESSION: 1. There is an acute C7 compression fracture. There is no retropulsion of the posterior cortex at th is level with no evidence of prominent central canal stenosis at this level although there does appea r to be a disc herniation at C7-T1 level, slightly right of midline. 2. There is moderate central spinal canal stenosis at C5-6 level due to a herniated disc at this leve l, as described above. 3. No acute intracranial findings. No skull fractures. This study was 1st read by [facility] No evidence of cervical spine fracture, malalignment, nor acute compromise of the cervical spinal can al. RADIATION DOSE DELIVERED: 975.26mGy.cm Total DLP DATA REPOSITORY: All CT scans at this facility are submitted to the National Radiology Data Registry (NRDR) Dose Index Registry (DIR) with the [employer] (A[employer]). RADIATION OPTIMIZATION: All CT scans at this facility use at least one of these dose optimization te chniques: automated exposure control; mA and/or kV adjustment per patient size (includes targeted exa ms where dose is matched to clinical indication); or iterative reconstruction.
[2021-02-06 17:03] VITALS: BP 120/81; PULSE 68; RESP 16; TEMP 36.4; O2SAT 96
--- NOTE | 2021-02-06 17:15 | DI.RAD_ITS ---
Exam(s) XR LUMBAR SPINE AP, LAT EXAM: XR LUMBAR SPINE AP, LAT CLINICAL HISTORY: trauma, low back pain. TECHNIQUE: 2D digital imaging was performed. COMPARISON: CR XR DEXA BONE DENSITY W/WO CECI from 06/24/2019 FINDINGS: Multilevel height loss of superior endplates in the lower thoracic and lumbar spines, age indetermina te. No listhesis. Some these were evident on prior material engineer film of the DEXA scan performed July 05. All the disc spaces exhibit normal height in the lumbar spine. No lytic osseous lesions identif ied. No scoliosis. IMPRESSION: As above. Recommend follow-up MRI. DATA REPOSITORY: RADIATION DOSE DELIVERED:
[2021-02-06 17:55] LABS: HGB 13.7 g/dL (11.2-15.7); MCH 32.6 pg (27.0-33.0); MCHC 34.3 % (32.0-36.0); MCV 95.2 fL (80-95); MPV 9.8 fL (8.0-11.0); Platelet Count 300 10^3/uL (130-400); RDW 13.2 % (11.7-14.6)
--- NOTE | 2021-02-06 17:55 | W.ED.GENAD ---
Discharge Plan Disposition Patient Disposition: [facility] Condition: Serious Discharge Details Clinical Impression: Head injury, Cervical compression fracture Primary Care Provider: Akin Blue ED Provider: Aroldo Soares Home Meds and New Rx's Prescriptions: Continued albuterol sulfate 90 mcg/actuation HFA aerosol inhaler 2 puff inhalation Q6H PRNRF: 0 Spiriva with HandiHaler 18 mcg capsule, w/inhalation device 1 cap inhalation DAILY RF: 0 Trelegy Ellipta 100-62.5-25 mcg blister with device 1 inh inhalation BID RF: 0 Biktarvy 50-200-25 mg tablet 1 tab PO DAILY RF: 0 venlafaxine 75 mg Tablet 150 mg DAILY RF: 0 buspirone 7.5 mg Tablet 7.5 mg BID RF: 0 trazodone 50 mg Tablet 50 mg PO HS RF: 0 carvedilol 3.125 mg Tablet 3.125 mg BID RF: 0 rosuvastatin 40 mg Tablet 40 mg DAILY RF: 0 Brilinta 90 mg Tablet 90 mg PO BID RF: 0 nicotine 14 mg/24 hr patch 24 hour 14 mg transdermal DAILY RF: 0 Medical Decision Making this is a 65 year old with mechanical fall, presents with low back pain but did strike back of head, denies LOC, no neurology deficit on exam. c collar in place will image head/cspine by CT scan, xray ls spine. will check urine, coags, bmp, cbc. critical results called by radiologist. His case was discussed with Dr Valladares at [facility] trauma. she accepts patient in transfer and recommends long board in addition to c-collar for transport. patient remains neurologically intact. 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 Medical Records Medical records reviewed: Yes I reviewed the patient's medical records. Imaging Data Radiologic Study: Imaging: X-Ray (ls spine) Radiologist's impression: Patient Name: Ivonne Mcfadden #: [id number]: ER Ordering Provider: : REG ER Primary Care Provider: Akin BlueDate of Exam: 02/06/21Sex: F : 7Age: 65 Exam(s) PROCEDURE INFORMATION: Exam: XR Lumbosacral Spine Exam date and time: 02/06/2021 5:16 PM Age: 65 years old Clinical indication: Other: Trauma, low back pain; Additional info: Head injury on blood thinners TECHNIQUE: Imaging protocol: XR of the lumbosacral spine. Views: 2 or 3 views. COMPARISON: No relevant prior studies available. FINDINGS: Bones/joints: Several compression deformities are seen. Multilevel endplate irregularities are seen as well. Height loss is worst at T12 and L1. Multilevel degenerative disc changes and facet arthropathy are seen. Soft tissues: Unremarkable. IMPRESSION: Multilevel age indeterminate endplate irregularities and compression deformities. If the reported trauma is recent, CT could help identify the acuity of these. Otherwise, MR is recommended if indicated. Dictated and Authenticated by: Reza Gonzalez MD. Radiologic Study #2: Imaging: CT Scan (ct head and cspine) Radiologist's impression: Patient Name: Ivonne Mcfadden #: [id number]: ER Ordering Provider: : REG ER Primary Care Provider: Baron Blue of Exam: 02/06/21Sex: F : 1955ge: 65 Exam(s) Addendum created by Vanesa Woods MD on 02/06/2021 6:31:52 PM EDT: I discussed case findings with AROLDO SOARES 02/06/2021 6:31 PM EDT. Initial report created on 02/06/2021 6:30:11 PM EDT: PROCEDURE INFORMATION: Exam: CT Head Without Contrast Exam date and time: 02/06/2021 5:15 PM Age: 65 years old Clinical indication: Other: Head injury on blood thinners TECHNIQUE: Imaging protocol: Computed tomography of the head without contrast. Radiation optimization: All CT scans at this facility use at least one of these dose optimization techniques: automated exposure control; mA and/or kV adjustment per patient size (includes targeted exams where dose is matched to clinical indication); or iterative reconstruction. COMPARISON: No relevant prior studies available. FINDINGS: Brain: Normal. No hemorrhage. Unremarkable white matter. No mass effect. Cerebral ventricles: No ventriculomegaly. Paranasal sinuses: Visualized sinuses are unremarkable. No fluid levels. Mastoid air cells: Visualized mastoid air cells are well aerated. Bones/joints: Unremarkable. No acute fracture. Soft tissues: Unremarkable. IMPRESSION: No evidence for acute intracranial abnormality. PROCEDURE INFORMATION: Exam: CT Cervical Spine Without Contrast Exam date and time: 02/06/2021 5:15 PM Age: 65 years old Clinical indication: Other: Head injury on blood thinners TECHNIQUE: Imaging protocol: Computed tomography images of the cervical spine without contrast. Radiation optimization: All CT scans at this facility use at least one of these dose optimization techniques: automated exposure control; mA and/or kV adjustment per patient size (includes targeted exams where dose is matched to clinical indication); or iterative reconstruction. COMPARISON: No relevant prior studies available. FINDINGS: Bones/joints: There is an acute compression fracture of C7 with approximately 20% loss of vertebral body height. There is mild comminution. There is no retropulsion. Discs/Spinal canal/Neural foramina: There is mild disc protrusion with calcification C2-C3. No stenosis. There is mild disc bulge with calcification C3-C4, no stenosis. There is moderate central disc protrusion with fairly significant stenosis C5-C6. There is minimal disc bulge C6-C7 without stenosis. There is mild hypertrophic spurring on the right at the C7-T1 level with possible minimal focal protrusion. No stenosis. Lungs: Lung apices are normal. Soft tissues: Unremarkable. IMPRESSION: Acute compression fracture C7. There is no bowel vent of the posterior elements and no retropulsion. No central stenosis at this level. There is multilevel spondylosis with high-grade stenosis secondary to disc protrusion at the C5-C6 level. Dictated and Authenticated by: Vanesa Woods MD. Ordering:KONRAD Che MD Lab Data Lab results reviewed: Yes I reviewed the patient's lab results. Labs: Laboratory Tests Range/Units 02/06/21 02/06/21 02/06/21 17:40 17:40 17:40 WBC (4.4-10.8) 10^3/uL 12.00 H RBC (3.93-5.22) 10^6/uL 4.20 Hgb (11.2-15.7) g/dL 13.7 Hct (36.0-46.0) % 40.0 MCV (80-95) fL 95.2 H MCH (27.0-33.0) pg 32.6 MCHC (32.0-36.0) % 34.3 RDW (11.7-14.6) % 13.2 Plt Count (130-400) 10^3/uL 300 MPV (8.0-11.0) fL 9.8 PT (9.3-11.0) sec 12.4 H INR (0.9-1.1) 1.2 H Sodium (136-145) mmol/L 133 L Potassium (3.5-5.1) mmol/L 3.7 Chloride (98-107) mmol/L 101 Carbon Dioxide (21.0-32.0) mmol/L 25.1 Anion Gap (3-11) mmol/L 6.9 BUN (7-18) mg/dL 8 Creatinine (0.55-1.02) mg/dL 0.7 Estimated GFR/1.73 m2 (mL/min/1.73m2) >= 60.00 Glucose (74-106) mg/dL 114 H Calcium (8.5-10.1) mg/dL 8.8 Urine Color (Yellow) Urine Clarity (Clear) Urine pH (5-8) Ur Specific [place] (1.005-1.025) Urine Protein (Negative) mg/dL Urine Ketones (Negative) mg/dL Urine Blood (Negative) Urine Nitrite (Negative) Urine Bilirubin (Negative) Urine Urobilinogen (Up TO 0.2) EU/dL Ur Leukocyte Esterase (Negative) Urine RBC (0-2) HPF Urine WBC (0-5) HPF Ur Epithelial Cells (Negative) HPF Urine Crystals (Negative) HPF Urine Bacteria (Negative) HPF Urine Casts (Negative) LPF Urine Mucus (Negative) Urine Other (Negative) Ur Culture Indicated? Urine Glucose (Negative) mg/dL Range/Units 02/06/21 19:55 WBC (4.4-10.8) 10^3/uL RBC (3.93-5.22) 10^6/uL Hgb (11.2-15.7) g/dL Hct (36.0-46.0) % MCV (80-95) fL MCH (27.0-33.0) pg MCHC (32.0-36.0) % RDW (11.7-14.6) % Plt Count (130-400) 10^3/uL MPV (8.0-11.0) fL PT (9.3-11.0) sec INR (0.9-1.1) Sodium (136-145) mmol/L Potassium (3.5-5.1) mmol/L Chloride (98-107) mmol/L Carbon Dioxide (21.0-32.0) mmol/L Anion Gap (3-11) mmol/L BUN (7-18) mg/dL Creatinine (0.55-1.02) mg/dL Estimated GFR/1.73 m2 (mL/min/1.73m2) Glucose (74-106) mg/dL Calcium (8.5-10.1) mg/dL Urine Color (Yellow) Yellow Urine Clarity (Clear) Clear Urine pH (5-8) 6.0 Ur Specific [place] (1.005-1.025) 1.010 Urine Protein (Negative) mg/dL Negative Urine Ketones (Negative) mg/dL Negative Urine Blood (Negative) Negative Urine Nitrite (Negative) Negative Urine Bilirubin (Negative) Negative Urine Urobilinogen (Up TO 0.2) EU/dL 0.2 Ur Leukocyte Esterase (Negative) Large H Urine RBC (0-2) HPF Negative Urine WBC (0-5) HPF 20-50 H Ur Epithelial Cells (Negative) HPF Moderate Urine Crystals (Negative) HPF Negative Urine Bacteria (Negative) HPF Few Urine Casts (Negative) LPF Negative Urine Mucus (Negative) Negative Urine Other (Negative) Negative Ur Culture Indicated? No/Sq. Contamination Urine Glucose (Negative) mg/dL Negative HPI General Mode of arrival: ambulatory. Limitations to Documentation: no limitations. Information obtained by: patient. HPI Narrative: patient reports a few hours prior to arrival while moving a box up a staircase lost her balance cause she lost control of the box. she states she fell about 4 steps landing on her buttocks and striking back of head on bookcase. she denies loc or nausea. she has low back pain which is chronic and has history of compression fractures. no radiation of pain down her legs, she states she took apap and motrin prior to arrival and took a shower but felt she should come for evaluation and had her sister drive her up. no other c/o. she has a ridge c-collar in place at time of my evaluation Related Data Home Medications Medication Instructions Recorded Confirmed Brilinta 90 mg PO BID 01/21/19 02/06/21 buspirone 7.5 mg BID 01/21/19 02/06/21 carvedilol 3.125 mg BID 01/21/19 02/06/21 rosuvastatin 40 mg DAILY 01/21/19 02/06/21 trazodone 50 mg PO HS 01/21/19 02/06/21 venlafaxine 150 mg DAILY 01/21/19 02/06/21 bictegravir 50 mg-emtricitabine 1 tab PO DAILY 03/02/20 02/06/21 200 mg-tenofovir alafenam 25 mg tablet albuterol sulfate 90 mcg/actuation 2 puff INHALATION Q6H PRN 03/30/20 02/06/21 aerosol inhaler fluticasone fur. 100 mcg-umeclid 1 inh INHALATION BID 03/30/20 02/06/21 62.5 mcg-vilant 25 mcg inhalat.powder tiotropium bromide 18 mcg capsule 1 cap INHALATION DAILY 03/30/20 02/06/21 with inhalation device nicotine 14 mg TRANSDERMAL DAILY 01/18/21 02/06/21 Allergies Allergy/AdvReac Type Severity Reaction Status Date / Time No Known Allergies Allergy Unverified 02/06/21 17:09 General Stated Complaint: Trauma DOMINGO: 3 Review of Systems All systems reviewed & are unremarkable except as noted in HPI and below Constitutional Constitutional: Denies frequent falls, Reports headache(s) and Denies weakness Eyes Eyes: Denies change in vision and Denies loss of vision ENT Ears, Nose, Mouth, and Throat: Denies vertigo, Denies dizziness and Reports headache(s) Cardiovascular Cardiovascular: Denies chest pain and Denies dyspnea Respiratory Respiratory: Denies dyspnea Gastrointestinal Gastrointestinal: Denies nausea and Denies vomiting Neurologic Neurologic: Denies confusion, Denies vertigo, Denies dizziness, Denies frequent falls, Reports headache(s), Denies localized weakness, Denies loss of vision and Denies weakness Psychiatric Psychiatric: Denies confusion PFSH Medical History CAD (coronary artery disease) COPD (chronic obstructive pulmonary disease) with emphysema Depression Hepatitis C Was treated in 2011 History of cocaine use HIV (human immunodeficiency virus infection) Hx of AIDS Per [facility] note. 2019 CD4 came back at 29% but HIV viral load undectectable. Hx of myocardial infarction Pt. states she thinks it was in 2018. Hyperlipidemia Hypertension Mood disorder Osteoporosis Smoker Surgical History History of heart artery stent Pt. states x2 RCA and RPDA-2018. Hx of colonoscopy Social History Smoking/Tobacco Use Status: Former Tobacco Use tobacco type: cigarettes Quit Date: 03/12/20 Smoking risk assessment performed?: Yes Alcohol Intake: never Drug use: Current Sobriety Substance use type: former substance user and crack/cocaine Details: Pt. states since last year she has been sober Do you feel safe at home: Yes Do you feel safe in your relationship?: Yes Exam Const General: cooperative, comfortable and no acute distress Nutritional Appearance: average body habitus and thin Orientation: alert, awake and oriented x3 HENMT Head: normal to inspection, no palpable skull fracture, normocephalic and atraumatic Ears: external ears normal General nose exam: external nose normal and no nasal discharge Face and sinus: normal facial exam Mouth: oral mucosae normal Teeth and gingiva: dentition normal Neck Neck: normal visual inspection and other (c collar in place) Chest Chest: normal inspection of the chest and no crepitus Resp Effort & Inspection: normal respiratory effort, able to speak in complete sentences and no use of accessory muscles Cardio Rate: regular rate Rhythm: regular rhythm GI Palpation: soft Auscultation: normal bowel sounds Skin General skin exam: no rashes or lesions noted Neuro General: patient alert, patient awake and patient oriented x3 Cranial Nerves: CN's II-XI intact bilaterally Cognition: normal cognition Speech: speech normal Extrem General: normal to inspection and full ROM Course Vital Signs Vital signs: Vital Signs Temperature 36.4 C L 02/06/21 17:03 Pulse 68 02/06/21 17:03 Respiratory Rate 16 02/06/21 17:03 Blood Pressure 120/81 02/06/21 17:03 Pulse Oximetry 96 02/06/21 17:03 Temperature 36.4 C L 02/06/21 17:03 Temperature Source Skin 02/06/21 17:03 Pulse 68 02/06/21 17:03 Respiratory Rate 16 02/06/21 17:03 Respiratory Effort Non-Labored 02/06/21 17:15 Respiratory Depth Normal 02/06/21 17:15 Respiratory Pattern Normal 02/06/21 17:15 Blood Pressure 120/81 02/06/21 17:03 Blood Pressure Position Sitting 02/06/21 17:03 Pulse Oximetry 96 02/06/21 17:03 Oxygen Delivery Method Room Air 02/06/21 17:03 Oxygen Flow Rate 0 02/06/21 17:03 Pain Level 10 02/06/21 17:03 Comment 02/06/21 17:03
[2021-02-06 18:02] LABS: Anion Gap 6.9 mmol/L (3-11); BUN 8 mg/dL (7-18); CO2 25.1 mmol/L (21.0-32.0); CREATININE 0.7 mg/dL (0.55-1.02); Calcium 8.8 mg/dL (8.5-10.1); Chloride 101 mmol/L (98-107); Glucose 114 mg/dL (74-106); Potassium 3.7 mmol/L (3.5-5.1); Sodium 133 mmol/L (136-145)
[2021-02-06 18:05] LABS: INR 1.2 (0.9-1.1); Prothrombin Time 12.4 sec (9.3-11.0)
--- NOTE | 2021-02-06 18:30 | DI.VRAD_ITS ---
Addendum created by Vanesa Woods MD on 02/06/2021 6:31:52 PM EDT: I discussed case findings with AROLDO VASQUEZ 02/06/2021 6:31 PM EDT. Initial report created on 02/06/2021 6:30:11 PM EDT: PROCEDURE INFORMATION: Exam: CT Head Without Contrast Exam date and time: 02/06/2021 5:15 PM Age: 65 years old Clinical indication: Other: Head injury on blood thinners TECHNIQUE: Imaging protocol: Computed tomography of the head without contrast. Radiation optimization: All CT scans at this facility use at least one of these dose optimization techniques: automated exposure control; mA and/or kV adjustment per patient size (includes targeted exams where dose is matched to clinical indication); or iterative reconstruction. COMPARISON: No relevant prior studies available. FINDINGS: Brain: Normal. No hemorrhage. Unremarkable white matter. No mass effect. Cerebral ventricles: No ventriculomegaly. Paranasal sinuses: Visualized sinuses are unremarkable. No fluid levels. Mastoid air cells: Visualized mastoid air cells are well aerated. Bones/joints: Unremarkable. No acute fracture. Soft tissues: Unremarkable. IMPRESSION: No evidence for acute intracranial abnormality. PROCEDURE INFORMATION: Exam: CT Cervical Spine Without Contrast Exam date and time: 02/06/2021 5:15 PM Age: 65 years old Clinical indication: Other: Head injury on blood thinners TECHNIQUE: Imaging protocol: Computed tomography images of the cervical spine without contrast. Radiation optimization: All CT scans at this facility use at least one of these dose optimization techniques: automated exposure control; mA and/or kV adjustment per patient size (includes targeted exams where dose is matched to clinical indication); or iterative reconstruction. COMPARISON: No relevant prior studies available. FINDINGS: Bones/joints: There is an acute compression fracture of C7 with approximately 20% loss of vertebral body height. There is mild comminution. There is no retropulsion. Discs/Spinal canal/Neural foramina: There is mild disc protrusion with calcification C2-C3. No stenosis. There is mild disc bulge with calcification C3-C4, no stenosis. There is moderate central disc protrusion with fairly significant stenosis C5-C6. There is minimal disc bulge C6-C7 without stenosis. There is mild hypertrophic spurring on the right at the C7-T1 level with possible minimal focal protrusion. No stenosis. Lungs: Lung apices are normal. Soft tissues: Unremarkable. IMPRESSION: Acute compression fracture C7. There is no bowel vent of the posterior elements and no retropulsion. No central stenosis at this level. There is multilevel spondylosis with high-grade stenosis secondary to disc protrusion at the C5-C6 level. Dictated and Authenticated by: Vanesa Woods MD. Ordering:KONRAD Che MD
--- NOTE | 2021-02-06 18:31 | DI.VRAD_ITS ---
PROCEDURE INFORMATION: Exam: XR Lumbosacral Spine Exam date and time: 02/06/2021 5:16 PM Age: 65 years old Clinical indication: Other: Trauma, low back pain; Additional info: Head injury on blood thinners TECHNIQUE: Imaging protocol: XR of the lumbosacral spine. Views: 2 or 3 views. COMPARISON: No relevant prior studies available. FINDINGS: Bones/joints: Several compression deformities are seen. Multilevel endplate irregularities are seen as well. Height loss is worst at T12 and L1. Multilevel degenerative disc changes and facet arthropathy are seen. Soft tissues: Unremarkable. IMPRESSION: Multilevel age indeterminate endplate irregularities and compression deformities. If the reported trauma is recent, CT could help identify the acuity of these. Otherwise, MR is recommended if indicated. Dictated and Authenticated by: Reza Gonzalez MD. Ordering:KONRAD Che MD
[2021-02-06 19:01] VITALS: BP 123/71; PULSE 62; RESP 22; TEMP 36.7; O2SAT 96
[2021-02-06 20:04] VITALS: BP 114/66; PULSE 66; RESP 18; O2SAT 99
[2021-02-06 20:06] LABS: Bilirubin Negative (Negative); Blood Negative (Negative); Clarity Clear (Clear); Glucose Negative (Negative); Ketones Negative (Negative); Leukocyte Esterase Large (Negative); Nitrite Negative (Negative); Urobilinogen 0.2 EU/dL (Up TO 0.2)
[2021-02-06 20:14] LABS: Bacteria Few HPF (Negative); C & S Indicated? No/Sq. Contamination; Casts Negative LPF (Negative); Crystals Negative HPF (Negative); Epithelial Cells Moderate HPF (Negative); Mucus Negative (Negative); Other Cells Negative (Negative); RBC Negative HPF (0-2); WBC 20-50 HPF (0-5)
[2021-02-06] MEDS: MORPHine 4 MG/ML SYR IVP (21:27)
== END 2021-02-06 21:40 | disposition short-term general hospital (02) ==
PROVIDERS: Emergency Provider Nurse Practitioner Acute Care; PCP Family Medicine
DX: S12.690A Other displaced fracture of seventh cervical vertebra, initial encounter for closed fracture (principal); S09.8XXA Other specified injuries of head, initial encounter; M54.5 Low back pain; W10.8XXA Fall (on) (from) other stairs and steps, initial encounter
CPT/HCPCS: 36415; 80048; 85027; 96374; 99285; 70450; 72100; 72125; 81003; 81015; 85610; J2270

== ENCOUNTER 2021-03-01 08:04 | Emergency (ER) | payer OTHER, SELFPAY ==
[2021-03-01 08:13] VITALS: BP 123/80; PULSE 68; RESP 16; TEMP 36; O2SAT 96
--- NOTE | 2021-03-01 08:30 | DI.RAD_ITS ---
Exam(s) XR PORTABLE CHEST AP EXAM: XR PORTABLE CHEST AP CLINICAL HISTORY: cough, fever, recent rib fxs TECHNIQUE: 2D digital imaging was performed. COMPARISON: CR XR PORTABLE CHEST AP from 01/18/2021 FINDINGS: MEDIASTINUM: Normal. HEART: Normal. PULMONARY VASCULATURE: Normal. LUNGS: There are infiltrates seen in the right upper and right middle lobes. PLEURAL SPACE: No pleural effusion or pneumothorax. BONE:Within normal limits for the patient's age. OTHER FINDINGS:Normal. IMPRESSION: Pneumonia in the right upper and middle lobes. DATA REPOSITORY: RADIATION DOSE DELIVERED:
[2021-03-01 09:01] LABS: Source Nasal/Nares
[2021-03-01 09:35] LABS: Abs Immature Grans 0.13 10^3/uL (0.0-0.06); Absolute Basophil Count 0.08 10^3/uL (0.0-0.2); Absolute Monocyte Count 0.84 10^3/uL (0.1-0.8); Basophils % 0.5; Eosinophils % 0.6; HCT 39.1 % (36.0-46.0); HGB 12.9 g/dL (11.2-15.7); Immature Grans % 0.8; Lymphocytes % 8.1; MCH 31.5 pg (27.0-33.0); MCV 95.4 fL (80-95); MPV 9.8 fL (8.0-11.0); Nucleated RBC 0 %; Platelet Count 444 10^3/uL (130-400); RDW 13.2 % (11.7-14.6); RDW-SD 46.2 fL; WBC 16.85 10^3/uL (4.4-10.8)
[2021-03-01 09:36] LABS: Absolute Lymphocyte Count 1.36 10^3/uL (1.2-3.4); Absolute Neutrophil Count 14.32 10^3/uL (1.2-6.7)
[2021-03-01 09:53] LABS: ALT 23 U/L (14-59); AST 28 U/L (15-37); Alkaline Phosphatase 127 U/L (46-116); Anion Gap 8.5 mmol/L (3-11); BUN 8 mg/dL (7-18); Bilirubin, Total 0.5 mg/dL (0.2-1.0); CO2 29.5 mmol/L (21.0-32.0); CREATININE 0.6 mg/dL (0.55-1.02); Chloride 100 mmol/L (98-107); Glucose 114 mg/dL (74-106); Potassium 4.1 mmol/L (3.5-5.1); Sodium 138 mmol/L (136-145)
[2021-03-01 10:03] LABS: COVID-19 PCR Negative (Negative)
--- NOTE | 2021-03-01 10:15 | RT.EKG_ITS ---
APPROVED REPORT Exam: Resting ECG Reason for Exam: weakness Patient Location: E HR:64 bpm ECG Measurements Heart Rate 64 AXIS IA 172 P 56 QRSd 97 QRS -63 QT 417 T 33 QTc 429 Conclusion Sinus rhythm...normal P axis, V-rate 60- 99 Left anterior fascicular block...axis(240,-40), init forces inf
--- NOTE | 2021-03-01 10:46 | ED.GENADUL_ITS ---
Discharge Plan Disposition Patient Disposition: HOME Condition: Good Discharge Details Clinical Impression: Pneumonia Primary Care Provider: [facility] ED Provider: Estrella Bob Home Meds and New Rx's Prescriptions: New levofloxacin 750 mg tablet 750 mg PO Q24H Qty: 7 RF: 0 Continued albuterol sulfate 90 mcg/actuation HFA aerosol inhaler 2 puff inhalation Q6H PRNRF: 0 Spiriva with HandiHaler 18 mcg capsule, w/inhalation device 1 cap inhalation DAILY RF: 0 Trelegy Ellipta 100-62.5-25 mcg blister with device 1 inh inhalation BID RF: 0 Biktarvy 50-200-25 mg tablet 1 tab PO DAILY RF: 0 venlafaxine 75 mg Tablet 150 mg DAILY RF: 0 buspirone 7.5 mg Tablet 7.5 mg BID RF: 0 trazodone 50 mg Tablet 50 mg PO HS RF: 0 carvedilol 3.125 mg Tablet 3.125 mg BID RF: 0 rosuvastatin 40 mg Tablet 40 mg DAILY RF: 0 nicotine 14 mg/24 hr patch 24 hour 14 mg transdermal DAILY RF: 0 aspirin 81 mg Tablet,Delayed Release (Dr/Ec) 81 mg PO DAILY RF: 0 ezetimibe 10 mg tablet RF: 0 oxycodone 5 mg tablet 20 mg RF: 0 Discharge Instructions Instructions: Pneumonia (ED) Additional Instructions: You will need to see your doctor on Friday or Friday, I have called them and they will let you know regarding your appointment, If you do not hear from them tomorrow, call them to be sure that you have an appointment early next week should you develop worsening shortness of breath, fever, chills, pain, please return immediately for reevaluation Yogurt once or twice daily while on this antibiotic you do not develop a stool infection Continue to use your incentive spirometer at least six times daily Referrals: [facility] [Primary Care Provider] - Discharge Data Discharge Date/Time-TO BE ENTERED AT DEPARTURE: 03/01/21 11:08 Medical Decision Making Patient appears well, she has a slight leukocytosis 16,000, she is otherwise afebrile and nontoxic She has a notable infiltrate on x-ray per my review and radiology interpretation Covid swab negative She will be treated with Levaquin given her comorbidities She has not hypoxic, she is stable for discharge, she is not splinting her pain She requests discharge home I did discuss the case with the on-call for her PCP Dr. Nguyen, I spoke with [facility] nurse practitioner and they will see patient on Friday or Friday next week, she is given low threshold to return should she have new or worsening complaints she is discharged home in stable condition with stable vital No hypoxia noted, no tachycardia, no tachypnea HIV level undetectable, CD4 count stable Medical Records Medical records reviewed: Yes I reviewed the patient's medical records. Lab Data Lab results reviewed: Yes I reviewed the patient's lab results. HPI General Mode of arrival: ambulatory . Date/Time Provider Initiated Documentation: 03/01/21 08:20 . Limitations to Documentation: no limitations . Information obtained by: patient . HPI Narrative: This 65-year-old female with history of HIV, tobacco use, compression fractures T7, and rib fractures presents with report of cough persistent for the past week with subjective fevers. Patient denies any fevers chest pain shortness of breath. Denies history of Covid, vaccinated. Denies calf pain or swelling or pleuritic pain associated. Reports clear mucus production. Denies any nausea or vomiting. Related Data Home Medications Medication Instructions Recorded Confirmed buspirone 7.5 mg BID 01/21/19 03/01/21 carvedilol 3.125 mg BID 01/21/19 03/01/21 rosuvastatin 40 mg DAILY 01/21/19 03/01/21 trazodone 50 mg PO HS 01/21/19 03/01/21 venlafaxine 150 mg DAILY 01/21/19 03/01/21 bictegravir 50 mg-emtricitabine 1 tab PO DAILY 03/02/20 02/06/21 200 mg-tenofovir alafenam 25 mg tablet albuterol sulfate 90 mcg/actuation 2 puff INHALATION Q6H PRN 03/30/20 03/01/21 aerosol inhaler fluticasone fur. 100 mcg-umeclid 1 inh INHALATION BID 03/30/20 03/01/21 62.5 mcg-vilant 25 mcg inhalat.powder tiotropium bromide 18 mcg capsule 1 cap INHALATION DAILY 03/30/20 03/01/21 with inhalation device nicotine 14 mg TRANSDERMAL DAILY 01/18/21 03/01/21 aspirin 81 mg PO DAILY 03/01/21 03/01/21 ezetimibe mg 03/01/21 levofloxacin 750 mg PO Q24H #7 tab 03/01/21 oxycodone 20 mg 03/01/21 Previous Rx's Medication Instructions Recorded levofloxacin 750 mg PO Q24H #7 tab 03/01/21 Allergies Allergy/AdvReac Type Severity Reaction Status Date / Time No Known Allergies Allergy Unverified 02/06/21 17:09 General Stated Complaint: RespSymp DOMINGO: 3 Review of Systems All systems reviewed & are unremarkable except as noted in HPI and below PFSH Medical History CAD (coronary artery disease) COPD (chronic obstructive pulmonary disease) with emphysema Depression Hepatitis C Was treated in 2011 History of cocaine use HIV (human immunodeficiency virus infection) Hx of AIDS Per [facility] note. 2019 CD4 came back at 29% but HIV viral load undectectable. Hx of myocardial infarction Pt. states she thinks it was in 2018. Hyperlipidemia Hypertension Mood disorder Osteoporosis Smoker Surgical History History of heart artery stent Pt. states x2 RCA and RPDA-2018. Hx of colonoscopy Social History Smoking/Tobacco Use Status: Former Tobacco Use tobacco type: cigarettes Quit Date: 03/12/20 Smoking risk assessment performed?: Yes Alcohol Intake: never Drug use: Current Sobriety Substance use type: former substance user and crack/cocaine Details: Pt. states since last year she has been sober Do you feel safe at home: Yes Do you feel safe in your relationship?: Yes Exam Const General: cooperative and no acute distress HENMT Other: Moist mucous membrane Eyes Sclera: sclerae normal Resp Effort & Inspection: normal respiratory effort Other: Several rhonchi noted, no respiratory distress Cardio Rate: regular rate Rhythm: regular rhythm GI Other: Nontender abdominal exam Skin General skin exam: no rashes or lesions noted Neuro General: patient alert and patient oriented x3 Extrem Other: No calf swelling or tenderness appreciated Distal pulses intact Course Vital Signs Vital signs: Vital Signs Temperature 36.0 C L 03/01/21 08:13 Pulse 68 03/01/21 08:13 Respiratory Rate 16 03/01/21 08:13 Blood Pressure 123/80 03/01/21 08:13 Pulse Oximetry 96 03/01/21 08:13 Temperature 36.0 C L 03/01/21 08:13 Temperature Source Skin 03/01/21 08:13 Pulse 68 03/01/21 08:13 Respiratory Rate 16 03/01/21 08:13 Respiratory Effort 03/01/21 08:17 Respiratory Depth Normal 03/01/21 08:17 Blood Pressure 123/80 03/01/21 08:13 Pulse Oximetry 96 03/01/21 08:13 Oxygen Delivery Method Room Air 03/01/21 08:13 Oxygen Flow Rate 0 03/01/21 08:13 Lab/Test Results Lab/Test Results: Laboratory Tests Range/Units 03/01/21 03/01/21 03/01/21 08:50 09:15 09:15 WBC (4.4-10.8) 10^3/uL 16.85 H RBC (3.93-5.22) 10^6/uL 4.10 Hgb (11.2-15.7) g/dL 12.9 Hct (36.0-46.0) % 39.1 MCV (80-95) fL 95.4 H MCH (27.0-33.0) pg 31.5 MCHC (32.0-36.0) % 33.0 RDW (11.7-14.6) % 13.2 Plt Count (130-400) 10^3/uL 444 H MPV (8.0-11.0) fL 9.8 Immature Gran % 0.8 Neutrophils % 85.0 Lymphocytes % 8.1 Monocytes % 5.0 Eosinophils % 0.6 Basophils % 0.5 Nucleated RBC % % 0 Absolute Neutrophils (1.2-6.7) 10^3/uL 14.32 H Absolute Lymphocytes (1.2-3.4) 10^3/uL 1.36 Absolute Monocytes (0.1-0.8) 10^3/uL 0.84 H Absolute Eosinophils (0.0-0.7) 10^3/uL 0.10 Absolute Basophils (0.0-0.2) 10^3/uL 0.08 Sodium (136-145) mmol/L 138 Potassium (3.5-5.1) mmol/L 4.1 Chloride (98-107) mmol/L 100 Carbon Dioxide (21.0-32.0) mmol/L 29.5 Anion Gap (3-11) mmol/L 8.5 BUN (7-18) mg/dL 8 Creatinine (0.55-1.02) mg/dL 0.6 Estimated GFR/1.73 m2 (mL/min/1.73m2) >= 60.00 Glucose (74-106) mg/dL 114 H Calcium (8.5-10.1) mg/dL 9.0 Total Bilirubin (0.2-1.0) mg/dL 0.5 AST (15-37) U/L 28 ALT (14-59) U/L 23 Alkaline Phosphatase (46-116) U/L 127 H Total Protein (6.4-8.2) g/dL 7.0 Albumin (3.4-5.0) g/dL 2.0 L COVID-19 Source Nasal/Nares SARS-CoV-2 (PCR) (Negative) Negative
== END 2021-03-01 11:08 | disposition home or self-care (01) ==
PROVIDERS: Emergency Provider Physician Assistant; PCP Family Medicine
DX: J18.8 Other pneumonia, unspecified organism (principal); Z87.891 Personal history of nicotine dependence; Z20.822 Contact with and (suspected) exposure to COVID-19; Z03.818 Encounter for observation for suspected exposure to other biological agents ruled out
CPT/HCPCS: 36415; 80053; 87635; 93005; 99285; 71045; 85025; 93010